=== PATIENT | female | born 1980 | race Caucasian/White ===

== ENCOUNTER 2017-09-07 23:17 | Emergency (ER) | payer OTHER, BC ==
[2017-09-07 23:37] VITALS: RESP 18
--- NOTE | 2017-09-08 00:45 | ED ---
General Adult HPI - General Chief complaint: Overdose Stated complaint: Overdose Time Seen by Provider: 09/07/17 23:35 Source: patient, family, RN notes reviewed Mode of arrival: wheelchair Limitations: no limitations - History of Present Illness Initial comments: This is a 37-year-old female who comes in the emergency department because the stated she was so groggy she wasn't making sense and was difficult to even get her awake. states he received a text message from one of her friends stated that she took a bunch of Xanax. Patient states that she has been under quite a bit of stress with school and at work and she came home and just wanted to relax so she drank a bunch of wine approximately 16 ounces and took 4-52 mg Xanax. Patient states at no time did she want to kill herself. She states she was very depressed and just wanted to relax. states he' s concerned about her because this is a typical of her. also states that she did not ever indicate any suicidal thoughts. - Related Data Home Medications Medication Instructions Recorded Confirmed ALPRAZolam [Xanax] 1 mg PO BID PRN 01/30/14 01/30/14 Dimethyl Fumarate [Tecfidera] 240 mg PO BID 01/30/14 01/30/14 Escitalopram Oxalate [Lexapro] 10 mg PO DAILY 01/30/14 01/30/14 Primidone [Mysoline] 50 mg PO BID 01/30/14 01/30/14 Previous Rx's Medication Instructions Recorded Levofloxacin [Levaquin] 500 mg PO DAILY #9 tab 01/30/14 Allergies Allergy/AdvReac Type Severity Reaction Status Date / Time latex Allergy Unknown Verified 09/07/17 23:37 Review of Systems ROS Statement: Those systems with pertinent positive or pertinent negative responses have been documented in the HPI. ROS Other: All systems not noted in ROS Statement are negative. Past Medical History Additional Past Medical History / Comment(s): multiple sclerosis, History of Any Multi-Drug Resistant Organisms: None Reported Past Surgical History: Tonsillectomy Past Psychological History: Anxiety, Depression Smoking Status: Current some day smoker Past Alcohol Use History: Occasional Past Drug Use History: Prescription Drug Abuse General Exam - General Exam Comments Initial Comments: GENERAL: Patient is well-developed and well-nourished. Patient is nontoxic and well- hydrated and is in no acute distress. ENT: Neck is soft and supple. No significant lymphadenopathy is noted. Oropharynx is clear. Moist mucous membranes. Neck has full range of motion without eliciting any pain. EYES: The sclera were anicteric and conjunctiva were pink and moist. Extraocular movements were intact and pupils were equal round and reactive to light. Eyelids were unremarkable. PULMONARY: Unlabored respirations. Good breath sounds bilaterally. No audible rales rhonchi or wheezing was noted. CARDIOVASCULAR: There is a regular rate and rhythm without any murmurs gallops or rubs. ABDOMEN: Soft and nontender with normal bowel sounds. No palpable organomegaly was noted. There is no palpable pulsatile mass. SKIN: Skin is clear with no lesions or rashes and otherwise unremarkable. NEUROLOGIC: Patient is alert and oriented x3. Cranial nerves II through XII are grossly intact. Motor and sensory are also intact. Normal speech, volume and content. Symmetrical smile. MUSCULOSKELETAL: Normal extremities with adequate strength and full range of motion. No lower extremity swelling or edema. No calf tenderness. LYMPHATICS: No significant lymphadenopathy is noted PSYCHIATRIC: Patient discusses all these stresses in her life but is rational and denies any suicidal ideations Limitations: no limitations Course Vital Signs 09/07/17 09/08/17 23:34 01:41 Temperature 97.9 F 97.8 F Pulse Rate 86 68 Respiratory 18 18 Rate Blood Pressure 109/72 102/53 O2 Sat by Pulse 99 98 Oximetry Medical Decision Making - Medical Decision Making EPS evaluated the patient and determined that the patient was not needing admission. Patient continued to deny any suicidal ideations but agrees to outpatient follow-up EKG shows normal sinus rhythm at 71 bpm. It was 132 QRS is 88 QT interval 432 QTC is 469. Patient's EKG shows no ST segment elevation or depression or T wave abnormalities are noted. - Lab Data Result diagrams: 09/08/17 01:00 Lab Results 09/08/17 09/08/17 Range/Units 01:00 01:00 WBC 5.5 (3.8-10.6) k/uL RBC 3.61 L (3.80-5.40) m/uL Hgb 10.9 L (11.4-16.0) gm/dL Hct 33.7 L (34.0-46.0) % MCV 93.2 (80.0-100.0) fL MCH 30.2 (25.0-35.0) pg MCHC 32.3 (31.0-37.0) g/dL RDW 13.6 (11.5-15.5) % Plt Count 217 (150-450) k/uL Neutrophils % 50 % Lymphocytes % 34 % Monocytes % 10 % Eosinophils % 4 % Basophils % 0 % Neutrophils # 2.7 (1.3-7.7) k/uL Lymphocytes # 1.9 (1.0-4.8) k/uL Monocytes # 0.5 (0-1.0) k/uL Eosinophils # 0.2 (0-0.7) k/uL Basophils # 0.0 (0-0.2) k/uL Urine Opiates Screen Not Detected (NotDetected) Ur Oxycodone Screen Not Detected (NotDetected) Urine Methadone Screen Not Detected (NotDetected) Ur Propoxyphene Screen Not Detected (NotDetected) Ur Barbiturates Screen Not Detected (NotDetected) U Tricyclic Antidepress Not Detected (NotDetected) Ur Phencyclidine Scrn Not Detected (NotDetected) Ur Amphetamines Screen Detected H (NotDetected) U Methamphetamines Scrn Not Detected (NotDetected) U Benzodiazepines Scrn Detected H (NotDetected) Urine Cocaine Screen Not Detected (NotDetected) U Marijuana (THC) Screen Not Detected (NotDetected) Disposition Clinical Impression: Benzodiazepine overdose, Situational depression Disposition: HOME SELF-CARE Condition: Good Instructions: Depression (ED) Is patient prescribed a controlled substance at d/c from ED?: No Referrals: Tal Turcios MD [Primary Care Provider] - 1-2 days Time of Disposition: 01:32
[2017-09-08 01:43] VITALS: BP 102/53; PULSE 68; TEMP 97.8
[2017-09-08 01:43] LABS: Basophils % (A) 0 %; Eosinophils # (A) 0.2 k/uL (0-0.7); Eosinophils % (A) 4 %; HCT 33.7 % (34.0-46.0); HGB 10.9 gm/dL (11.4-16.0); Lymphocytes # (A) 1.9 k/uL (1.0-4.8); Lymphocytes % (A) 34 %; MCH 30.2 pg (25.0-35.0); MCHC 32.3 g/dL (31.0-37.0); MCV 93.2 fL (80.0-100.0); Mean Platelet Volume 7.5; Monocytes # (A) 0.5 k/uL (0-1.0); Monocytes % (A) 10 %; Neutrophils # (A) 2.7 k/uL (1.3-7.7); Neutrophils % (A) 50 %; Platelet Count 217 k/uL (150-450); RBC 3.61 m/uL (3.80-5.40); RDW 13.6 % (11.5-15.5); WBC 5.5 k/uL (3.8-10.6)
[2017-09-08 02:31] LABS: Amphetamine Screen,Urine Detected (NotDetected); Barbiturate Screen,Urine Not Detected (NotDetected); Benzodiazepines Screen,Urine Detected (NotDetected); Cocaine Screen,Urine Not Detected (NotDetected); Methadone Screen, Urine Not Detected (NotDetected); Opiate Screen,Urine Not Detected (NotDetected); Oxycodone Screen, Urine Not Detected (NotDetected); Phencyclidine Screen,Urine Not Detected (NotDetected); Tricyclic Antidepressant,Urine Not Detected (NotDetected); Urn Cannabinoid Scrn Not Detected (NotDetected)
== END 2017-09-08 01:42 | disposition home or self-care (01) ==
LOC: EC 23:17
DX: T42.4X1A Poisoning by benzodiazepines, accidental (unintentional), initial encounter (principal); F43.21 Adjustment disorder with depressed mood; G35 Multiple sclerosis; F41.9 Anxiety disorder, unspecified; F17.200 Nicotine dependence, unspecified, uncomplicated; Z79.899 Other long term (current) drug therapy; Z91.040 Latex allergy status
CPT/HCPCS: 36415; 80306; 82075; 85025; 93005; 99284

== ENCOUNTER 2018-11-20 00:22 | Observation (INO) | payer BC, OTHER ==
--- NOTE | 2018-11-20 01:00 | ED ---
Overdose HPI - General Chief Complaint: Overdose Stated Complaint: Overdose Time Seen by Provider: 11/20/18 00:31 Source: patient Mode of arrival: ambulatory Limitations: no limitations - History of Present Illness Initial Comments: This patient is 38-year-old woman who states that she has been under a lot of stress and as result she felt she wanted to overdose. She states that she took 40 tablets of [place], the 10 mg/325 mg preparation. Patient states that this was approximately 3 hours ago now. She denies any abdominal complaints. No nausea, vomiting, abdominal pain or other symptoms. MD Complaint: intentional overdose Onset/Timin -: hour(s) Intent: suicide attempt How Overdose Was Discovered: called family/friend Treatments Prior to Arrival: none - Related Data Home Medications Medication Instructions Recorded Confirmed ALPRAZolam [Xanax] 2 mg PO BID PRN 01/30/14 11/20/18 Escitalopram Oxalate [Lexapro] 20 mg PO DAILY 01/30/14 11/20/18 Cyclobenzaprine HCl 10 mg PO Q8HR PRN 11/20/18 11/20/18 HYDROcodone/APAP 10-325MG [[place] 1 tab PO Q12H PRN 11/20/18 11/20/18 10-325] Ibuprofen [Motrin] 800 mg PO Q8HR PRN 11/20/18 11/20/18 Phentermine HCl 37.5 mg PO DAILY 11/20/18 11/20/18 Allergies Allergy/AdvReac Type Severity Reaction Status Date / Time latex Allergy Unknown Verified 11/20/18 10:14 Review of Systems ROS Statement: Those systems with pertinent positive or pertinent negative responses have been documented in the HPI. ROS Other: All systems not noted in ROS Statement are negative. Constitutional: Denies: fever Respiratory: Denies: cough, dyspnea Cardiovascular: Denies: chest pain, palpitations, edema, syncope Gastrointestinal: Denies: abdominal pain, nausea, vomiting Genitourinary: Denies: dysuria, hematuria Skin: Denies: rash Neurological: Denies: headache, weakness Psychiatric: Reports: depression, suicidal thoughts. Denies: auditory hallucinations, visual hallucinations, homicidal thoughts Past Medical History Additional Past Medical History / Comment(s): multiple sclerosis, History of Any Multi-Drug Resistant Organisms: None Reported Past Surgical History: Tonsillectomy Past Psychological History: Anxiety, Depression Smoking Status: Current some day smoker Past Alcohol Use History: Occasional Past Drug Use History: Opiates, Prescription Drug Abuse - Past Family History Mother Family Medical History: COPD, Hyperlipidemia, Hypertension, Thyroid Disorder Father Family Medical History: AFIB, Hypertension General Exam Limitations: no limitations General appearance: alert, in no apparent distress Head exam: Present: atraumatic, normocephalic Eye exam: Present: normal appearance, PERRL, EOMI. Absent: scleral icterus, conjunctival injection ENT exam: Present: normal oropharynx Neck exam: Present: normal inspection, full ROM Respiratory exam: Present: normal lung sounds bilaterally. Absent: respiratory distress, wheezes, rales, rhonchi, stridor Cardiovascular Exam: Present: regular rate, normal rhythm, normal heart sounds. Absent: systolic murmur, diastolic murmur, rubs, gallop GI/Abdominal exam: Present: soft. Absent: distended, tenderness, guarding, rebound, rigid, mass Extremities exam: Present: normal inspection, normal capillary refill. Absent: pedal edema, calf tenderness Back exam: Present: normal inspection. Absent: CVA tenderness (R), CVA tenderness (L) Neurological exam: Present: alert Psychiatric exam: Present: depressed, suicidal ideation. Absent: agitated, anxious, flat affect, manic, homicidal ideation Skin exam: Present: warm, dry, intact, normal color. Absent: rash Course Vital Signs 11/20/18 11/20/18 11/20/18 00:27 01:51 03:05 Temperature 97.9 F 97.7 F Pulse Rate 76 69 70 Respiratory 20 17 Rate Blood Pressure 130/77 113/77 106/64 O2 Sat by Pulse 100 98 Oximetry 11/20/18 11/20/18 11/20/18 04:00 05:00 06:17 Temperature 98.2 F Pulse Rate 64 64 96 Respiratory 18 19 18 Rate Blood Pressure 90/49 91/66 107/70 O2 Sat by Pulse 98 98 98 Oximetry Medical Decision Making - Medical Decision Making Case is discussed with poison control and patient will be admitted 24 hours as she describes taking toxic dose of Tylenol lower level comes back below that. Poison control also recommends acetylcysteine treatment. - Lab Data Result diagrams: 11/21/18 07:29 11/21/18 07:29 Lab Results 11/20/18 11/20/18 11/20/18 Range/Units 00:49 00:49 01:14 WBC 8.4 (3.8-10.6) k/uL RBC 4.45 (3.80-5.40) m/uL Hgb 12.9 (11.4-16.0) gm/dL Hct 39.5 (34.0-46.0) % MCV 88.8 (80.0-100.0) fL MCH 29.0 (25.0-35.0) pg MCHC 32.6 (31.0-37.0) g/dL RDW 16.3 H (11.5-15.5) % Plt Count 291 (150-450) k/uL Neutrophils % 48 % Lymphocytes % 37 % Monocytes % 7 % Eosinophils % 6 % Basophils % 1 % Neutrophils # 4.0 (1.3-7.7) k/uL Lymphocytes # 3.1 (1.0-4.8) k/uL Monocytes # 0.6 (0-1.0) k/uL Eosinophils # 0.5 (0-0.7) k/uL Basophils # 0.1 (0-0.2) k/uL Hypochromasia Moderate Anisocytosis Slight Sodium 143 (137-145) mmol/L Potassium 4.2 (3.5-5.1) mmol/L Chloride 106 (98-107) mmol/L Carbon Dioxide 24 (22-30) mmol/L Anion Gap 13 mmol/L BUN 10 (7-17) mg/dL Creatinine 0.69 (0.52-1.04) mg/dL Est GFR (CKD-EPI)AfAm >90 (>60 ml/min/1.73 sqM) Est GFR (CKD-EPI)NonAf >90 (>60 ml/min/1.73 sqM) Glucose 88 (74-99) mg/dL Plasma Lactic Acid Jeremi 0.9 (0.7-2.0) mmol/L Calcium 9.7 (8.4-10.2) mg/dL Total Bilirubin 0.2 (0.2-1.3) mg/dL AST 25 (14-36) U/L ALT 12 (9-52) U/L Alkaline Phosphatase 69 (38-126) U/L Total Protein 8.3 H (6.3-8.2) g/dL Albumin 5.0 (3.5-5.0) g/dL Urine HCG, Qual (Not Detectd) Salicylates <1.0 mg/dL Urine Opiates Screen (NotDetected) Ur Oxycodone Screen (NotDetected) Urine Methadone Screen (NotDetected) Ur Propoxyphene Screen (NotDetected) Acetaminophen 42.2 ug/mL Ur Barbiturates Screen (NotDetected) U Tricyclic Antidepress (NotDetected) Ur Phencyclidine Scrn (NotDetected) Ur Amphetamines Screen (NotDetected) U Methamphetamines Scrn (NotDetected) U Benzodiazepines Scrn (NotDetected) Urine Cocaine Screen (NotDetected) U Marijuana (THC) Screen (NotDetected) Serum Alcohol 58 mg/dL 11/20/18 11/20/18 11/20/18 Range/Units 01:16 01:16 03:25 WBC (3.8-10.6) k/uL RBC (3.80-5.40) m/uL Hgb (11.4-16.0) gm/dL Hct (34.0-46.0) % MCV (80.0-100.0) fL MCH (25.0-35.0) pg MCHC (31.0-37.0) g/dL RDW (11.5-15.5) % Plt Count (150-450) k/uL Neutrophils % % Lymphocytes % % Monocytes % % Eosinophils % % Basophils % % Neutrophils # (1.3-7.7) k/uL Lymphocytes # (1.0-4.8) k/uL Monocytes # (0-1.0) k/uL Eosinophils # (0-0.7) k/uL Basophils # (0-0.2) k/uL Hypochromasia Anisocytosis Sodium (137-145) mmol/L Potassium (3.5-5.1) mmol/L Chloride (98-107) mmol/L Carbon Dioxide (22-30) mmol/L Anion Gap mmol/L BUN (7-17) mg/dL Creatinine (0.52-1.04) mg/dL Est GFR (CKD-EPI)AfAm (>60 ml/min/1.73 sqM) Est GFR (CKD-EPI)NonAf (>60 ml/min/1.73 sqM) Glucose (74-99) mg/dL Plasma Lactic Acid Jeremi (0.7-2.0) mmol/L Calcium (8.4-10.2) mg/dL Total Bilirubin (0.2-1.3) mg/dL AST (14-36) U/L ALT (9-52) U/L Alkaline Phosphatase (38-126) U/L Total Protein (6.3-8.2) g/dL Albumin (3.5-5.0) g/dL Urine HCG, Qual Not Detected (Not Detectd) Salicylates mg/dL Urine Opiates Screen Detected H (NotDetected) Ur Oxycodone Screen Detected H (NotDetected) Urine Methadone Screen Not Detected (NotDetected) Ur Propoxyphene Screen Not Detected (NotDetected) Acetaminophen 51.3 H* ug/mL Ur Barbiturates Screen Not Detected (NotDetected) U Tricyclic Antidepress Not Detected (NotDetected) Ur Phencyclidine Scrn Not Detected (NotDetected) Ur Amphetamines Screen Detected H (NotDetected) U Methamphetamines Scrn Not Detected (NotDetected) U Benzodiazepines Scrn Detected H (NotDetected) Urine Cocaine Screen Not Detected (NotDetected) U Marijuana (THC) Screen Detected H (NotDetected) Serum Alcohol mg/dL - EKG Data -: EKG Interpreted by Me EKG shows normal: sinus rhythm, axis (Normal), intervals (Normal), QRS complexes (Normal), ST-T waves (Normal) Rate: normal (Rate 76 bpm) Interpretation: normal EKG Critical Care Time Critical Care Time: Yes (30 minutes) Disposition Clinical Impression: Acetaminophen overdose Disposition: ADMITTED IP TO THIS [facility] Condition: Good
[2018-11-20] MEDS ORDERED: SODIUM CHLORIDE 0.9% 1,000 ML IV STA (01:07)
[2018-11-20] MEDS ORDERED: ACETYLCYSTEINE 6,000 MG/30 ML VIAL PO ONE (01:08)
[2018-11-20] MEDS ORDERED: ACTIVATED CHARCOAL 50 GM/240 ML BOTTLE PO STA (01:10)
[2018-11-20 01:20] LABS: Anisocytosis Slight; Basophils # (A) 0.1 k/uL (0-0.2); Basophils % (A) 1 %; Eosinophils # (A) 0.5 k/uL (0-0.7); Eosinophils % (A) 6 %; HCT 39.5 % (34.0-46.0); HGB 12.9 gm/dL (11.4-16.0); Hypochromasia Moderate; Lymphocytes # (A) 3.1 k/uL (1.0-4.8); Lymphocytes % (A) 37 %; MCHC 32.6 g/dL (31.0-37.0); MCV 88.8 fL (80.0-100.0); Mean Platelet Volume 6.2; Monocytes # (A) 0.6 k/uL (0-1.0); Monocytes % (A) 7 %; Neutrophils % (A) 48 %; Platelet Count 291 k/uL (150-450); RBC 4.45 m/uL (3.80-5.40); RDW 16.3 % (11.5-15.5); WBC 8.4 k/uL (3.8-10.6)
[2018-11-20 01:32] LABS: ALT 12 U/L (9-52); AST 25 U/L (14-36); Acetaminophen 42.2 ug/mL; African American GFR (CKD) >90 (>60 ml/min/1.73 sqM); Alcohol 58 mg/dL; Alkaline Phosphatase 69 U/L (38-126); Anion Gap 13 mmol/L; Blood Urea Nitrogen 10 mg/dL (7-17); Calcium 9.7 mg/dL (8.4-10.2); Carbon Dioxide 24 mmol/L (22-30); Chloride 106 mmol/L (98-107); Glucose 88 mg/dL (74-99); Potassium 4.2 mmol/L (3.5-5.1); Salicylate <1.0 mg/dL; Sodium 143 mmol/L (137-145); Total Bilirubin 0.2 mg/dL (0.2-1.3); Total Protein 8.3 g/dL (6.3-8.2)
[2018-11-20 01:43] LABS: Amphetamine Screen,Urine Detected (NotDetected); Barbiturate Screen,Urine Not Detected (NotDetected); Benzodiazepines Screen,Urine Detected (NotDetected); Cocaine Screen,Urine Not Detected (NotDetected); Methadone Screen, Urine Not Detected (NotDetected); Opiate Screen,Urine Detected (NotDetected); Oxycodone Screen, Urine Detected (NotDetected); Phencyclidine Screen,Urine Not Detected (NotDetected); Tricyclic Antidepressant,Urine Not Detected (NotDetected); Urn Cannabinoid Scrn Detected (NotDetected)
[2018-11-20] MEDS ORDERED: NALOXONE 0.4 MG/ML 1 ML VIAL IV PRN (05:40)
[2018-11-20] MEDS: SODIUM CHLORIDE 0.9% 1,000 ML IV SCH (06:13)
[2018-11-20] MEDS: ACETYLCYSTEINE 6,000 MG/30 ML VIAL PO SCH ×5 (06:14→23:07)
[2018-11-20 07:36] VITALS: BMI 22.8
[2018-11-20] MEDS ORDERED: Dimethyl Fumarate [Tecfidera] 240 MG PO SCH (09:00)
[2018-11-20] MEDS: PRIMIDONE 50 MG TAB PO SCH ×2 (09:36→21:05)
[2018-11-20] MEDS: FAMOTIDINE 20 MG TAB PO SCH ×2 (11:21→21:03)
[2018-11-20] MEDS: ESCITALOPRAM 10 MG TAB PO SCH (11:24)
[2018-11-20 13:10] LABS: ALT 19 U/L (9-52); AST 20 U/L (14-36); African American GFR (CKD) >90 (>60 ml/min/1.73 sqM); Alkaline Phosphatase 54 U/L (38-126); Anion Gap 9 mmol/L; Blood Urea Nitrogen 11 mg/dL (7-17); Calcium 8.8 mg/dL (8.4-10.2); Carbon Dioxide 25 mmol/L (22-30); Chloride 107 mmol/L (98-107); Glucose 116 mg/dL (74-99); Potassium 4.1 mmol/L (3.5-5.1); Sodium 141 mmol/L (137-145); Total Bilirubin 0.2 mg/dL (0.2-1.3); Total Protein 6.6 g/dL (6.3-8.2)
[2018-11-20 13:19] LABS: Prothrombin Time 10.7 sec (9.0-12.0)
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
--- NOTE | 2018-11-20 14:49 | HP ---
HISTORY AND PHYSICAL CHIEF COMPLAINT: A 38-year-old white female under a lot of stress. She wanted to overdose. She took 40 tablets of [place] 3 hours prior to admission. Poison Control was called. She came into the ER and I guess they gave her charcoal. She was admitted to the floor for monitoring and suicidal attempts and psychiatry consult. She has a sitter in the room. She is complaining of some mild nausea. No chest pain or shortness of breath. No lightheadedness or syncope. HOME MEDICINES: 1. Xanax 1 mg b.i.d. 2. Tecfidera 240 b.i.d. 3. Lexapro 10 mg daily. 4. Mysoline 50 b.i.d. ALLERGIES: LATEX. REVIEW OF SYSTEMS: Fourteen-point review of systems negative except for mentioned in HPI. PAST MEDICAL HISTORY: 1. Multiple sclerosis. 2. Apparently some kind of chronic fibromyalgia type pain. 3. Anxiety. 4. Depression. 5. History of tonsillectomies. 6. Currently someday smoker. 7. Prescription drug abuse with opiates obviously. PHYSICAL EXAMINATION: Thin, cachectic. CARDIOVASCULAR: S1, S2. LUNGS: Clear. GI: Soft. HEMATOLOGY: Negative Homans. PSYCH: Fair mood and affect. SKIN: Warm, dry, intact. Blood pressure 106 to 130 over 60s to 70s, temperature 97.9, pulse 69 to 76, oxygen saturation 98% to 100% on room air. Poison Control was consulted 24 hours toxic dose of Tylenol lower level comes below that. Poison Control recommended acetylcysteine treatment. Labs are reviewed, which are normal. Lactic acid 0.9. Salicylate level is less than 1. Acetaminophen 42. Alcohol 58. EKG sinus rhythm. ASSESSMENT: Acetaminophen overdose. Admit the patient. Monitor treatment. She has positive marijuana, benzodiazepines, amphetamines. She will have to be followed closely. Get psych consult. MMODL / IJN: [id number] /
[2018-11-20] MEDS: ONDANSETRON 4 MG/2 ML VIAL IVP PRN (18:21)
[2018-11-21] MEDS: ACETYLCYSTEINE 6,000 MG/30 ML VIAL PO SCH ×4 (00:35→13:13)
[2018-11-21] MEDS: ONDANSETRON 4 MG/2 ML VIAL IVP PRN (00:35)
[2018-11-21] MEDS: SODIUM CHLORIDE 0.9% 1,000 ML IV SCH (07:43)
[2018-11-21 07:49] LABS: Anisocytosis Slight; Basophils % (A) 0 %; Eosinophils # (A) 0.3 k/uL (0-0.7); Eosinophils % (A) 5 %; HCT 35.1 % (34.0-46.0); HGB 11.3 gm/dL (11.4-16.0); Hypochromasia Moderate; Lymphocytes # (A) 2.4 k/uL (1.0-4.8); Lymphocytes % (A) 32 %; MCH 28.9 pg (25.0-35.0); MCHC 32.2 g/dL (31.0-37.0); MCV 89.7 fL (80.0-100.0); Mean Platelet Volume 6.3; Monocytes # (A) 0.5 k/uL (0-1.0); Monocytes % (A) 7 %; Neutrophils # (A) 4.1 k/uL (1.3-7.7); Neutrophils % (A) 56 %; Platelet Count 247 k/uL (150-450); RBC 3.91 m/uL (3.80-5.40); RDW 16.2 % (11.5-15.5); WBC 7.4 k/uL (3.8-10.6)
[2018-11-21 07:53] LABS: Prothrombin Time 11.1 sec (9.0-12.0)
[2018-11-21 08:03] LABS: ALT 43 U/L (9-52); AST 47 U/L (14-36); Acetaminophen <10.0 ug/mL; African American GFR (CKD) >90 (>60 ml/min/1.73 sqM); Albumin 3.7 g/dL (3.5-5.0); Alkaline Phosphatase 58 U/L (38-126); Anion Gap 9 mmol/L; Blood Urea Nitrogen 9 mg/dL (7-17); Calcium 8.9 mg/dL (8.4-10.2); Carbon Dioxide 25 mmol/L (22-30); Chloride 107 mmol/L (98-107); Glucose 88 mg/dL (74-99); Potassium 3.7 mmol/L (3.5-5.1); Sodium 141 mmol/L (137-145); Total Bilirubin 0.2 mg/dL (0.2-1.3); Total Protein 6.2 g/dL (6.3-8.2)
[2018-11-21] MEDS: FAMOTIDINE 20 MG TAB PO SCH (09:21)
[2018-11-21] MEDS: PRIMIDONE 50 MG TAB PO SCH (09:21)
[2018-11-21] MEDS: ESCITALOPRAM 10 MG TAB PO SCH (09:21)
[2018-11-21] MEDS ORDERED: ESCITALOPRAM 20 MG TAB PO SCH (09:30)
--- NOTE | 2018-11-21 11:22 | P.DS ---
Providers Date of admission: 11/20/18 05:45 Attending physician: Joanna Banda Consults: 11/20/18 05:41 Consult Physician Routine Consulting Provider: Chad Alberts Reason/Comments: Overdose Do you want consulting provider notified?: Yes Primary care physician: Dusty Espinal MD Hospital Course: 38-year-old female has been under a lot of stress and the has been depressed or because of her home situation and financial status and the patient tried to kill herself overdosed on 40 tablets of Matheny as per the patient. We'll supplement ingestion, her acetaminophen levels are only 42 is not at toxic levels as per the nomogram. Poison control recommended 1 day of inpatient hospitalization and Mucomyst. Psychiatric was consult that. Since urine drug screen is positive for opiates oxycodone amphetamines and marijuana. 11/21/2018 Mucomyst will be discontinued, Tylenol levels are low normal compressive metabolic profile. Patient is medically stable to be discharged to psychiatric floor psychiatric history will evaluate the patient today. PHYSICAL EXAMINATION: GENERAL: The patient is alert and oriented x3, not in any acute distress. Well developed, well nourished. HEENT: Pupils are round and equally reacting to light. EOMI. No scleral icterus. No conjunctival pallor. Normocephalic, atraumatic. No pharyngeal erythema. No thyromegaly. CARDIOVASCULAR: S1 and S2 present. No murmurs, rubs, or gallops. PULMONARY: Chest is clear to auscultation, no wheezing or crackles. ABDOMEN: Soft, nontender, nondistended, normoactive bowel sounds. No palpable organomegaly. MUSCULOSKELETAL: No joint swelling or deformity. EXTREMITIES: No cyanosis, clubbing, or pedal edema. NEUROLOGICAL: Gross neurological examination did not reveal any focal deficits. SKIN: No rashes. Assessment and Plan Plan: Acetaminophen overdose: Acetaminophen levels are low normal compressive metabolic profile received Mucomyst for 24 hours medically cleared to be discharged to psychiatric floor. -Major depression and suicidal ideation psychiatric evaluation pending -Nicotine abuse multiple other drug abuse: Counseling was provided Patient Condition at Discharge: Fair Plan - Discharge Summary Discharge Rx Participant: Yes New Discharge Prescriptions: No Action Escitalopram Oxalate [Lexapro] 20 mg PO DAILY ALPRAZolam [Xanax] 2 mg PO BID PRN PRN Reason: Anxiety Phentermine HCl 37.5 mg PO DAILY Cyclobenzaprine HCl 10 mg PO Q8HR PRN PRN Reason: Pain HYDROcodone/APAP 10-325MG [Matheny 10-325] 1 tab PO Q12H PRN PRN Reason: Severe Pain Ibuprofen [Motrin] 800 mg PO Q8HR PRN PRN Reason: Pain Discharge Medication List ALPRAZolam [Xanax] 2 mg PO BID PRN 01/30/14 [History] Escitalopram Oxalate [Lexapro] 20 mg PO DAILY 01/30/14 [History] Cyclobenzaprine HCl 10 mg PO Q8HR PRN 11/20/18 [History] HYDROcodone/APAP 10-325MG [Matheny 10-325] 1 tab PO Q12H PRN 11/20/18 [History] Ibuprofen [Motrin] 800 mg PO Q8HR PRN 11/20/18 [History] Phentermine HCl 37.5 mg PO DAILY 11/20/18 [History] Follow up Appointment(s)/Referral(s): Dusty Espinal MD [Primary Care Provider] - 1-2 days
[2018-11-21 12:26] VITALS: BP 124/75; PULSE 68; RESP 18; TEMP 98.8
== END 2018-11-21 14:04 | disposition home or self-care (01) ==
LOC: EC 00:22 → 3NMEDONC 05:45
PROVIDERS: ADMIT Internal Medicine; ATTEND Internal Medicine
DX: T39.1X2A Poisoning by 4-Aminophenol derivatives, intentional self-harm, initial encounter (principal); F32.9 Major depressive disorder, single episode, unspecified; F41.9 Anxiety disorder, unspecified; T14.91XA Suicide attempt, initial encounter; F17.200 Nicotine dependence, unspecified, uncomplicated; F19.10 Other psychoactive substance abuse, uncomplicated; Z63.79 Other stressful life events affecting family and household; Z59.9 Problem related to housing and economic circumstances, unspecified; G35 Multiple sclerosis; Z87.828 Personal history of other (healed) physical injury and trauma; F11.10 Opioid abuse, uncomplicated; Z79.899 Other long term (current) drug therapy; Z79.891 Long term (current) use of opiate analgesic; Z79.1 Long term (current) use of non-steroidal anti-inflammatories (NSAID); Z91.040 Latex allergy status; Z82.5 Family history of asthma and other chronic lower respiratory diseases; Z82.49 Family history of ischemic heart disease and other diseases of the circulatory system; Z83.49 Family history of other endocrine, nutritional and metabolic diseases
CPT/HCPCS: 96376; 96374; 82075; 96361; 99285; 36415; 93005; 80053 ×2; 83605; 85025 ×2; 85610 ×2; 81025; 80306; 83520; 80329 ×2; 80320; G0378 ×2; J2405 ×2

== ENCOUNTER → 2023-04-22 | Outpatient (CLI) | payer MEDICAID ==
[2023-04-23 03:03] LABS: Basophils # (A) 0.04 X 10*3/uL (0.00-0.10); Basophils % (A) 0.5 %; Eosinophils % (A) 1.3 %; HCT 40.8 % (37.2-46.3); HGB 13.2 g/dL (12.0-15.0); Lymphocytes # (A) 3.29 X 10*3/uL (0.90-5.00); Lymphocytes % (A) 43.6 %; MCH 30.1 pg (27.0-32.0); MCHC 32.4 g/dL (32.0-37.0); MCV 93.2 FL (80.0-97.0); Mean Platelet Volume 10.4 FL (9.5-12.2); Monocytes # (A) 0.53 X 10*3/uL (0.20-1.00); NRBC Per 100 WBC 0 X 10*3/uL (0.00-0.01); Neutrophils # (A) 3.57 X 10*3/uL (1.80-7.70); Neutrophils % (A) 47.5 %; Platelet Count 241 X 10*3/uL (140-440); RBC 4.38 X 10*6/uL (4.10-5.20); RDW 13.2 % (11.5-14.5); WBC 7.54 X 10*3/uL (4.50-10.00)
[2023-04-23 03:07] LABS: Insulin Level 5.7 mIU/mL (3.0-25.0)
[2023-04-23 03:24] LABS: % Iron Saturation 29.22 (12.00-45.00); ALT 25 U/L (8-44); AST 27 U/L (13-35); Albumin 4.8 g/dL (3.8-4.9); Albumin/Globulin Ratio 1.85 Ratio (1.60-3.17); Alkaline Phosphatase 119 U/L (41-126); BUN/Creat Ratio 19.78 Ratio (12.00-20.00); Blood Urea Nitrogen 17.8 mg/dL (9.0-27.0); Calcium 10.1 mg/dL (8.7-10.3); Carbon Dioxide 26.9 mmol/L (21.6-31.8); Chloride 103 mmol/L (96-109); Chol/HDL Ratio 3.33 Ratio; Globulin 2.6 g/dL (1.6-3.3); Glucose 89 mg/dL (70-110); Iron 97 UG/DL (50-170); LDL Cholesterol,Calculated 159.8 mg/dL (0.0-131.0); Magnesium 2.3 mg/dL (1.5-2.4); Phosphorus 3.7 mg/dL (2.4-5.1); Potassium 4.7 mmol/L (3.5-5.5); Sodium 141 mmol/L (135-145); T4, Free (Free Thyroxine) 1.31 ng/dL (0.80-1.80); Total Bilirubin 0.4 mg/dL (0.3-1.2); Total Iron Binding Capacity 332 UG/DL (228-460); Total Protein 7.4 g/dL (6.2-8.2); VLDL Calculation 13.78 mg/dL (5.00-40.00)
[2023-04-23 03:28] LABS: C Reactive Protein <0.30 mg/dL (0.00-0.80); Estradiol <20.0 pg/mL
[2023-04-23 03:29] LABS: Follicle Stimulating Hormone 57.8 mIU/mL; Hepatitis C IgG Antibody Nonreactive; Luteinizing Hormone 35.8 mIU/mL
[2023-04-23 04:27] LABS: Erythrocyte Sedimentation Rate 5 mm/Hr (0-20)
[2023-04-23 10:46] LABS: Lipoprotein A 85 mg/dL (0-30)
[2023-04-24 07:23] LABS: Vit B1(Thiamine) 72 ug/L (38-122)
== END | disposition home or self-care (01) ==
LOC: LABWHC1 15:58
PROVIDERS: ATTEND Family Medicine
DX: Z00.01 Encounter for general adult medical examination with abnormal findings (principal); O99.283 Endocrine, nutritional and metabolic diseases complicating pregnancy, third trimester; Z3A.00 Weeks of gestation of pregnancy not specified; Z13.220 Encounter for screening for lipoid disorders; Z13.1 Encounter for screening for diabetes mellitus; Z11.59 Encounter for screening for other viral diseases; E78.5 Hyperlipidemia, unspecified; E06.3 Autoimmune thyroiditis; R94.6 Abnormal results of thyroid function studies; D50.9 Iron deficiency anemia, unspecified; D53.9 Nutritional anemia, unspecified; F41.1 Generalized anxiety disorder; D52.0 Dietary folate deficiency anemia; G53 Cranial nerve disorders in diseases classified elsewhere
CPT/HCPCS: 36415; 80053; 80061; 82040; 82533; 82626; 82670; 82728; 82746; 83001; 83002; 83036; 83090; 83525; 83540; 83550; 83695; 83735; 84100; 84140; 84144; 84270; 84403; 84425; 84439; 84443; 84481; 84482; 85025; 85652; 86140; 86803